=== PATIENT | female | born 1985 | race Caucasian/White ===

== ENCOUNTER 2016-09-27 17:30 | Emergency (ER) | payer OTHER ==
[~2016-09-27] VITALS: Ht 162.6 cm; Wt 75.0 kg
[~2016-09-27 17:30] MED LIST: ALBUTEROL SULF8.5 GM IH; AVELOX400 MG PO; CELEXA40 MG PO; DILAUDID2 MG PO; EFFEXOR50 MG; EFFEXOR75 MG PO; ENDOCET 5-3251 EACH PO; IBUPROFEN800 MG PO; LEVAQUIN500 MG PO; MOTRIN800 MG PO; Motrin PO; PRISTIQ50 MG; Percocet 5/325,Endoc PO; SLOW RELEASE I160 MG PO; ZANTAC150 MG PO; ZOFRAN4 MG PO; [UNRECOGNIZED DRUG - CODE] PR
[2016-09-27] MEDS ORDERED: TOPAMAX25 MG PO (18:34)
[2016-09-27] MEDS ORDERED: WELLBUTRIN SR150 MG PO (18:35)
[2016-09-27 19:59] LABS: HEMATOCRIT 40.9 % (36.0-46.0); MCH 31.5 PG (29.0-34.0); MCHC 34.7 G/DL (30.0-36.0); MCV 90.7 FL (83-99); MEAN PLAT.VOLUME 11.2 uM^3 (9.5-12.4); PLATELET COUNT 218 K/uL (156-360); RBC DIS.WIDTH-CV 13.1 % (11.8-14.6); RBC DIS.WIDTH-SD 42.3 % (39-53); RED BLOOD COUNT 4.51 M/uL (3.80-5.20); WHITE BLOOD COUNT 7.5 K/uL (4.1-10.2)
[2016-09-27 20:21] LABS: TROP-I INTERPRETATION NEGATIVE; TROPONIN-I < 0.01 ng/mL (0.0-0.30)
[2016-09-27 20:35] LABS: CHLORIDE 113 mEq/L (99-109); POTASSIUM 3.9 mEq/L (3.7-5.4); SODIUM 140 mEq/L (136-147)
[2016-09-27 20:36] LABS: GLUCOSE 95 mg/dL (70-99)
[2016-09-27 20:38] LABS: ANION GAP 8 MEQ/L (2-14)
[2016-09-27 20:40] LABS: GFR ESTIMATE (CALCULATED) > 59 mL/min/
[2016-09-27 20:41] LABS: UREA NITROGEN (BUN) 15 mg/dL (9-23)
[2016-09-27 20:49] LABS: QUANTITATIVE HCG < 4.0 MIU/ML
[2016-09-27] MEDS ORDERED: FIORICET 50-301 EACH PO (21:34)
[2016-09-27] MEDS ORDERED: MEDROL DOSEPAK4 MG PO (21:34)
[2016-09-27 22:23] VITALS: BP 127/91
== END 2016-09-27 22:25 | disposition home or self-care (01) ==
LOC: RME 17:30 → EME 17:30 → RME 22:25
PROVIDERS: Physician Assistant
DX: G43.809 Other migraine, not intractable, without status migrainosus (principal)
CPT/HCPCS: 70450; 80048; 84484; 84702; 85027; 93005; 99281; 99284; J1885

== ENCOUNTER 2016-10-27 08:08 | Day surgery (SDC) | payer OTHER ==
[~2016-10-27] VITALS: Ht 162.6 cm; Wt 74.8 kg
[~2016-10-27 08:08] MED LIST changes: +FIORICET 50-301 EACH PO; +MEDROL DOSEPAK4 MG PO; +TOPAMAX25 MG PO; +WELLBUTRIN SR150 MG PO
[2016-10-27 08:40] VITALS: BP 112/75
[2016-10-27 14:10] VITALS: BP 107/66
[2016-10-27 14:48] VITALS: BP 130/70
== END 2016-10-27 14:52 | disposition home or self-care (01) ==
LOC: SDC 08:08
DX: Z30.2 Encounter for sterilization (principal); Z30.432 Encounter for removal of intrauterine contraceptive device; Z82.49 Family history of ischemic heart disease and other diseases of the circulatory system; Z83.49 Family history of other endocrine, nutritional and metabolic diseases; Z80.0 Family history of malignant neoplasm of digestive organs; Z82.0 Family history of epilepsy and other diseases of the nervous system; Z80.3 Family history of malignant neoplasm of breast; Z82.5 Family history of asthma and other chronic lower respiratory diseases
CPT/HCPCS: J0131; J1100; J1885; J2250; J2405; J2710; J2765; J3010; S0020

== ENCOUNTER 2016-10-30 14:36 | Emergency (ER) | payer OTHER ==
[~2016-10-30] VITALS: Ht 162.6 cm; Wt 75.2 kg
[2016-10-30 15:01] LABS: HEMATOCRIT 41.7 % (36.0-46.0); MCH 31.5 PG (29.0-34.0); MCHC 34.5 G/DL (30.0-36.0); MCV 91.2 FL (83-99); MEAN PLAT.VOLUME 10.9 uM^3 (9.5-12.4); PLATELET COUNT 251 K/uL (156-360); RBC DIS.WIDTH-CV 12.9 % (11.8-14.6); RBC DIS.WIDTH-SD 42.1 % (39-53); RED BLOOD COUNT 4.57 M/uL (3.80-5.20); WHITE BLOOD COUNT 8.2 K/uL (4.1-10.2)
[2016-10-30 15:08] LABS: CHLORIDE 113 mEq/L (99-109); SODIUM 143 mEq/L (136-147)
[2016-10-30 15:10] LABS: GLUCOSE 75 mg/dL (70-99)
[2016-10-30 15:11] LABS: ANION GAP 8 MEQ/L (2-14)
[2016-10-30 15:14] LABS: GFR ESTIMATE (CALCULATED) > 59 mL/min/
[2016-10-30 15:15] LABS: UREA NITROGEN (BUN) 12 mg/dL (9-23)
[2016-10-30 17:09] LABS: D-DIMER ELISA 0.17 mg/L FEU (< 0.57)
[2016-10-30 17:24] LABS: TROP-I INTERPRETATION NEGATIVE; TROPONIN-I < 0.01 ng/mL (0.0-0.30)
[2016-10-30 18:28] VITALS: BP 116/81
== END 2016-10-30 18:29 | disposition home or self-care (01) ==
LOC: EME 14:36
DX: S46.911A Strain of unspecified muscle, fascia and tendon at shoulder and upper arm level, right arm, initial encounter (principal); X58.XXXA Exposure to other specified factors, initial encounter; R06.02 Shortness of breath; G43.909 Migraine, unspecified, not intractable, without status migrainosus
CPT/HCPCS: 71020; 80048; 84484; 85027; 85379; 93005; 99281; 99284